=== PATIENT | male | born 1950 | race Caucasian/White ===

== ENCOUNTER → 2019-12-31 | Outpatient (CLI) | payer MEDICARE ==
[~2019-12-31] MED LIST: ALPR1TAB6 PO; ATEN50TA41 PO; ATOR10TA9 PO; CALCIUM PO; FENO160T PO; FISH OIL PO; LISI-170 PO; MELO7.5T31 PO; TAMS0.4C2 PO; TICA90TA PO; VITAMIN D PO
== END | disposition home or self-care (01) ==
LOC: CVU 10:53
PROVIDERS: ATTEND Internal Medicine Cardiovascular Disease
DX: I65.23 Occlusion and stenosis of bilateral carotid arteries (principal); R09.89 Other specified symptoms and signs involving the circulatory and respiratory systems
CPT/HCPCS: 93880

== ENCOUNTER → 2020-07-18 | Outpatient (CLI) | payer MEDICARE ==
[~2020-07-18] MED LIST changes: +REGADENOSON 0.4 MG/5 ML SYRINGE ONE
== END | disposition home or self-care (01) ==
LOC: CFH 08:02
PROVIDERS: ATTEND Internal Medicine Cardiovascular Disease
DX: I21.19 ST elevation (STEMI) myocardial infarction involving other coronary artery of inferior wall (principal); I10 Essential (primary) hypertension; I25.119 Atherosclerotic heart disease of native coronary artery with unspecified angina pectoris
CPT/HCPCS: 78452; 93017; A9502; J2785

== ENCOUNTER → 2020-08-08 | Outpatient (CLI) | payer MEDICARE ==
[~2020-08-08] MED LIST changes: -REGADENOSON 0.4 MG/5 ML SYRINGE ONE
== END | disposition home or self-care (01) ==
LOC: CFH 10:54
PROVIDERS: ATTEND Specialist
DX: C90.01 Multiple myeloma in remission (principal); C79.51 Secondary malignant neoplasm of bone; M85.88 Other specified disorders of bone density and structure, other site; M85.89 Other specified disorders of bone density and structure, multiple sites
CPT/HCPCS: 77080